=== PATIENT | female | born 1995 | race Caucasian/White ===

== ENCOUNTER 2017-08-01 00:48 | Emergency (ER) | payer BC ==
[~2017-08-01] VITALS: Ht 162.6 cm; Wt 63.8 kg
[2017-08-01 00:57] VITALS: TEMP 36.7; Ht 162.6 cm; Wt 63.8 kg
[2017-08-01] MEDS ORDERED: VNTHFA/IN INH (01:14)
[2017-08-01] MEDS ORDERED: BCPILLS PO (01:14)
[2017-08-01] MEDS ORDERED: KETOROLAC TROMETHAMINE 30 MG/ML VIAL IV STA (01:27)
[2017-08-01] MEDS ORDERED: LORAZEPAM 2 MG/ML 1 ML VIAL IV STA (02:09)
[2017-08-01 02:58] LABS: BASO % 0.5 %; BASO ABS # 0.04 K/uL (0-0.2); EOS % 1.9 %; EOS ABS # 0.15 K/uL (0-0.5); HEMATOCRIT 40.1 % (37-47); HEMOGLOBIN 13.8 g/dL (12.0-16.0); IG# 0.02 K/uL (0.00-0.02); LYMPH % 38.1 %; LYMPH ABS # 2.94 K/uL (1.2-3.4); MEAN CELL VOLUME 94.1 fL (80-100); MEAN CORPUSCULAR HEMOGLOBIN 32.4 pg (25-34); MEAN CORPUSCULAR HGB CONC 34.4 g/dl (32-36); MONO % 7.6 %; MONO ABS # 0.59 K/uL (0.11-0.59); NEUT % 51.6 %; NEUT ABS # 3.98 K/uL (1.4-6.5); PLATELET COUNT 279 K/uL (130-400); RED CELL DISTRIBUTION WIDTH CV 12.8 % (11.5-14.5); RED CELL DISTRIBUTION WIDTH SD 43.6 fL (36.4-46.3); WHITE BLOOD COUNT 7.72 K/uL (4.8-10.8)
[2017-08-01 03:05] LABS: ALBUMIN 4.1 gm/dl (3.4-5.0); CALCIUM 9.1 mg/dl (8.5-10.1); CREATININE 1.2 mg/dl (0.60-1.20); POTASSIUM 3.5 mmol/L (3.5-5.1)
[2017-08-01 03:08] LABS: TOTAL PROTEIN 8.1 gm/dl (6.4-8.2)
[2017-08-01] MEDS ORDERED: ATIVAN 1MG HOMEPACK PO ONE (03:45)
--- NOTE | 2017-08-01 03:54 | EMERGENCY ROOM VISIT NOTE ---
History First contact with patient: 01:09 Chief Complaint: CHEST PAIN Stated Complaint: CHEST PAIN,LUMP IN THROAT Nursing Triage Summary: patient states three weeks ago she was seen at an ED for chest pressure and was diagnosed with bronchitis and given an inhaler . patient states for past three weeks chest pressure continues and has not improved. patient also states now tonight she is feeling a lump in her throat. History of Present Illness The patient is a 22 year old female who presents to the Emergency Room with complaints of chest pain for the past 3 weeks he was seen at a hospital in [place] and had a CTA that was negative. Patient had a full workup there and no acute findings. Patient states she feels anxious and has been underneath a lot of stress. She describes chest pain as discomfort, 4 out of 10 throughout the anterior chest. Nothing makes it better or worse. Patient exercises daily and has no difficulties with this. No exertional chest pain. Patient denies dyspnea, fever, chills, leg pain or swelling, abdominal pain, lightheadedness or dizziness. No family history of heart disease or blood clots. Review of Systems An 10 system review of systems was completed with positives and pertinent negatives listed in the HPI. Past Medical/Surgical History None Social History Smoking Status: Never Smoker Alcohol Use: none Drug Use: none Marital Status: single Occupation Status: [employer] student Current/Historical Medications Scheduled Control Pills ( Control Pills), 1 TAB PO DAILY Scheduled PRN Albuterol Hfa (Ventolin Hfa), 2 PUFFS INH Q4H PRN for Shortness of Breath Physical Exam Vital Signs Date Time Temp Pulse Resp B/P (MAP) Pulse Ox O2 Delivery O2 Flow Rate FiO2 08/01/17 01:45 88 08/01/17 01:45 73 19 133/84 98 Room Air 08/01/17 01:45 Room Air 08/01/17 01:09 98 Room Air 08/01/17 00:57 36.7 74 20 144/89 97 Room Air Physical Exam VITALS: Vitals are noted on the nurse's note and reviewed by myself. Vital signs stable. GENERAL: Pleasant female mildly anxious appearing, in no acute distress, nondiaphoretic, well-developed well-nourished. SKIN: Capillary reflex less than 2 seconds. HEENT: Normocephalic. PERRLA. EOMI. Nares patent. Mucous membranes moist. Neck is supple without nuchal rigidity. HEART: Regular rate and rhythm without murmurs gallops or rubs. Chest nontender to palpation LUNGS: Clear to auscultation bilaterally without wheezes, rales or rhonchi. No retractions or accessory muscle use. ABDOMEN: Positive bowel sounds x 4. Normal tympanic percussion. Soft, nontender, without masses or organomegaly. Dunn sign negative. No guarding or rebound tenderness. MUSCULOSKELETAL: No gross musculoskeletal defects. No pedal edema. No calf tenderness. NEURO: Patient was alert and oriented to person place and time. Normal sensation to light and sharp touch. No focal neurological deficits. Medical Decision & Procedures Laboratory Results 08/01/17 01:14 Red Blood Count 4.26, Mean Corpuscular Volume 94.1, Mean Corpuscular Hemoglobin 32.4, Mean Corpuscular Hemoglobin Concent 34.4, Mean Platelet Volume 11.0, Neutrophils (%) (Auto) 51.6, Lymphocytes (%) (Auto) 38.1, Monocytes (%) (Auto) 7.6, Eosinophils (%) (Auto) 1.9, Basophils (%) (Auto) 0.5, Neutrophils # (Auto) 3.98, Lymphocytes # (Auto) 2.94, Monocytes # (Auto) 0.59, Eosinophils # (Auto) 0.15, Basophils # (Auto) 0.04 08/01/17 01:14 Test 08/01/17 01:14 08/01/17 01:41 White Blood Count 7.72 K/uL (4.8-10.8) Red Blood Count 4.26 M/uL (4.2-5.4) Hemoglobin 13.8 g/dL (12.0-16.0) Hematocrit 40.1 % (37-47) Mean Corpuscular Volume 94.1 fL (80-100) Mean Corpuscular Hemoglobin 32.4 pg (25-34) Mean Corpuscular Hemoglobin Concent 34.4 g/dl (32-36) Platelet Count 279 K/uL (130-400) Mean Platelet Volume 11.0 fL (7.4-10.4) Neutrophils (%) (Auto) 51.6 % Lymphocytes (%) (Auto) 38.1 % Monocytes (%) (Auto) 7.6 % Eosinophils (%) (Auto) 1.9 % Basophils (%) (Auto) 0.5 % Neutrophils # (Auto) 3.98 K/uL (1.4-6.5) Lymphocytes # (Auto) 2.94 K/uL (1.2-3.4) Monocytes # (Auto) 0.59 K/uL (0.11-0.59) Eosinophils # (Auto) 0.15 K/uL (0-0.5) Basophils # (Auto) 0.04 K/uL (0-0.2) RDW Standard Deviation 43.6 fL (36.4-46.3) RDW Coefficient of Variation 12.8 % (11.5-14.5) Immature Granulocyte % (Auto) 0.3 % Immature Granulocyte # (Auto) 0.02 K/uL (0.00-0.02) Anion Gap 9.0 mmol/L (3-11) Est Creatinine Clear Calc Drug Dose 64.6 ml/min Estimated GFR () 75.3 Estimated GFR (Non- 65.0 BUN/Creatinine Ratio 11.9 (10-20) Calcium Level 9.1 mg/dl (8.5-10.1) Total Bilirubin 0.5 mg/dl (0.2-1) Direct Bilirubin 0.1 mg/dl (0-0.2) Aspartate Amino Transf (AST/SGOT) 15 U/L (15-37) Alanine Aminotransferase (ALT/SGPT) 25 U/L (12-78) Alkaline Phosphatase 58 U/L (45-117) Total Protein 8.1 gm/dl (6.4-8.2) Albumin 4.1 gm/dl (3.4-5.0) Human Chorionic Gonadotropin, Qual NEG (NEG) Bedside Troponin I < 0.030 ng/ml (0-0.045) Medications Administered Medications (Trade) Dose Ordered Sig/Joleen Route Start Time Stop Time Status Last Admin Dose Admin Ketorolac Tromethamine (Toradol Inj) 30 mg NOW STAT IV 08/01/17 01:27 08/01/17 01:28 DC 08/01/17 01:46 30 MG Lorazepam (Ativan Inj) 0.5 mg NOW STAT IV 08/01/17 02:09 08/01/17 02:10 DC 08/01/17 02:19 0.5 MG ED Course Prior records/ancillary studies reviewed. Triage Nursing notes reviewed. Additional history obtained from family. The patient's history was concerning for chest pain. Differential diagnosis: Etiologies such as cardiac ischemia, aortic dissection, pulmonary embolism, pneumonia, pneumothorax, musculoskeletal, infections, pericarditis, myocarditis , esophageal rupture, gastrointestinal, as well as others were entertained. Physical examination: As above. ER treatment provided: Toradol, Ativan On reassessment the patient felt better. Diagnostic interpretation by me: The electrocardiogram was negative for pathologic change. Normal sinus, normal intervals, no acute ST-T wave changes. Impression normal sinus rhythm interpreted by myself The labs revealed negative troponin Imaging studies: Chest x-ray with no acute consolidation, pneumothorax Fre[place] per my interpretation I obtain the records from the [facility] and patient had a negative CTA. Patient had a negative troponin. Exam and history seem consistent with noncardiac chest pain. Patient felt 100% after the Ativan. Her symptoms have resolved. She has been underneath more stress lately. Patient was advised to rest, decrease stress and to follow-up health services for referral to a therapist for possible evaluation for anxiety. Patient will was agreeable to this. Patient had a normal EKG. Negative chest x-ray. Negative troponin. Patient was advised to return to the ER with chest pain, difficulty breathing, fevers, worsening signs or symptoms or as needed. By the evaluation outlined above emergent etiologies such as cardiac ischemia, aortic dissection, pulmonary embolism, pneumonia, pneumothorax , infections, pericarditis, myocarditis, gastrointestinal, as well as others were deemed relatively unlikely. Patient was advised that Ativan is highly addictive and only to take a half a tablet if having severe anxiety. She is strongly encouraged her symptoms persist to begin an SSRI or SNRI instead or seek therapy for treatment. The pt informed about the findings as listed above. All questions were answered and pleased with the treatment. Return instructions were outlined and the patient was discharged in stable condition. Outpatient prescription management: Ativan Referral: The patient was referred back to primary care physician for follow-up in 2 to 3 days for a recheck of the current condition. Case reviewed with my attending Medical Decision As above Medication Reconcilliation Current Medication List: was personally reviewed by me Blood Pressure Screening Patient's blood pressure: Normal blood pressure Impression Primary Impression: Chest pain Additional Impression: Anxiety Departure Information Dispostion Home / Self-Care Condition GOOD Forms HOME CARE DOCUMENTATION FORM, School Instructions, Return To School: 1 day IMPORTANT VISIT INFORMATION Patient Instructions Chest Pain - [facility], Anxiety Body Response, My [facility] Additional Instructions DO NOT drive, drink alcohol, operate machinery, or perform dangerous activities today. You were given medications in the ER that can affect your ability to safely function or operate a vehicle. Ativan 1 mg: Half a tablet every 8 hours as needed for anxiety. No alcohol or driving on this medication. Ibuprofen(Motrin, Advil) may be used for fever or pain. Use 600mg every six hours as needed. Take with food. Avoid using more than 2400mg in a 24 hour period. Do not use 2400mg per day for more than three consecutive days without physician direction. Prolonged inappropriate use can lead to stomach upset or ulcers. (AND/OR) Acetaminophen(Tylenol) may be used for fever or pain. Use 1000mg every six hours as needed. Avoid using more than 3000mg in a 24 hour period. Rest and drink plenty of fluids as tolerated. Continue current medications. Avoid strenuous activities and anything that worsens your pain. Resume normal activities once your symptoms resolve. Return to the ER immediately for worsening or persistent chest pain, abdominal pain, vomiting, fevers, chest pains, difficulty breathing, worsening of your condition, or as needed. Follow up with your primary physician in 2-3 days for a recheck of your current condition. Recommend following up for anxiety and possible referral to a therapist. School Instructions Return To School: 1 day Problem Qualifiers Primary Impression: Chest pain Chest pain type: unspecified Qualified Codes: R07.9 - Chest pain, unspecified
[2017-08-01 03:57] VITALS: BP 124/83; PULSE 73; O2SAT 100
--- NOTE | 2017-08-01 07:31 | DIAGNOSTIC IMAGING REPORT ---
CHEST ONE VIEW PORTABLE HISTORY: Atypical CHEST PAIN COMPARISON: None. FINDINGS: The lungs are clear. Cardiac silhouette is normal in size. No pleural effusions. No pneumothorax. IMPRESSION: No acute process. Electronically signed by: Pablo Spencer M.D. 08/01/2017 7:30 AM Dictated Date/Time: 08/01/2017 7:29 AM
== END 2017-08-01 04:01 | disposition home or self-care (01) ==
LOC: C.EDB 00:51
DX: R07.9 Chest pain, unspecified (principal); F41.9 Anxiety disorder, unspecified; Z79.3 Long term (current) use of hormonal contraceptives